=== PATIENT | female | born 1970 | race Caucasian/White ===

== ENCOUNTER 2017-07-17 05:20 | Emergency (ER) | payer OTHER ==
[~2017-07-17] VITALS: Ht 165.1 cm; Wt 69.4 kg
[2017-07-17 05:22] VITALS: BP 110/84
[2017-07-17] MEDS ORDERED: ERGO500028 PO (05:31)
[2017-07-17] MEDS ORDERED: ACET-1083 PO (05:31)
[2017-07-17] MEDS ORDERED: ATA25 PO (05:31)
[2017-07-17] MEDS ORDERED: METF500T PO (05:31)
[2017-07-17] MEDS ORDERED: AMOX500C25 PO (05:31)
[2017-07-17] MEDS ORDERED: PSEU60TA51 PO (05:31)
[2017-07-17] MEDS ORDERED: ALBU4TAB21 PO (05:31)
--- NOTE | 2017-07-17 05:34 | NUR ---
AMBULATED TO ER BED 4
--- NOTE | 2017-07-17 05:35 | NUR ---
PATIENT IS A 46 Y/O FEMALE WHO PRESENTS TO THE ED C/O HEADACHE. PT STATES, "I WAS RECENTLY DIAGNOSED WITH DIABETES BUT I HAVE HAD THIS HEADACHE AND DIZZINESS SINCE THURSDAY." PT REPORTS 10/10 ACHING HEADACHE PAIN THAT DOES NOT RADIATE. PT DENIES SOB, CP, REPORTS NAUSEA DENIES VOMITING/DIARRHEA. PT AAOX4, RR EVEN/UNLABORED. PT REPOSITIONED FOR COMFORT, BED IN LOWEST POSITION. ER MD DR. ROBERTS NOTIFIED. WILL CONTINUE TO MONITOR.
--- NOTE | 2017-07-17 05:36 | NUR ---
DR. ROBERTS EVALUATING PATIENT AT BEDSIDE.
[2017-07-17] MEDS ORDERED: diphenhydrAMINE 50 MG/ML VIAL IM ONE (05:40)
[2017-07-17] MEDS ORDERED: PROCHLORPERAZINE 10 MG/2 ML VIAL IM ONE (05:40)
[2017-07-17 06:40] VITALS: BP 117/88
--- NOTE | 2017-07-17 06:40 | NUR ---
Patient discharged with v/s stable. Written and verbal after care instructions given and explained. Patient verbalized understanding. Ambulatory with steady gait. All questions addressed prior to discharge. Advised to follow up with PMD.
== END 2017-07-17 06:40 | disposition home or self-care (01) ==
LOC: MED 05:20
DX: R51 Headache (principal); M54.2 Cervicalgia; R09.81 Nasal congestion; E11.9 Type 2 diabetes mellitus without complications; Z79.899 Other long term (current) drug therapy; Z90.710 Acquired absence of both cervix and uterus; Z79.84 Long term (current) use of oral hypoglycemic drugs
CPT/HCPCS: 70450; 82948; 96372; 99284; J0780; J1200

== ENCOUNTER 2018-01-14 04:05 | Emergency (ER) | payer OTHER ==
[~2018-01-14] VITALS: Ht 160 cm; Wt 65.8 kg
[~2018-01-14 04:05] MED LIST: ACET-1083 PO; ALBU4TAB21 PO; AMOX500C25 PO; ATA25 PO; ERGO500028 PO; METF500T PO; PSEU60TA51 PO
[2018-01-14 04:12] VITALS: BP 113/72
[2018-01-14] MEDS: ONDANSETRON 4 MG/2 ML VIAL IVP ONE (05:19)
[2018-01-14] MEDS: NACL 0.9% 1,000 ML IV SCH (05:19)
[2018-01-14] MEDS: KETOROLAC 30 MG/ML VIAL IVP ONE (05:19)
[2018-01-14 05:24] LABS: BASOPHILS % (AUTO) 0.4 % (0.0-2.0); HEMOGLOBIN 14.1 g/dL (12.0-16.0); LYMPHOCYTES # (AUTO) 0.8 K/uL (2.5-16.5); MEAN CORPUSCULAR HEMOGLOBIN 31 pg (27-31); MEAN CORPUSCULAR HGB CONC 33 g/dL (33-37); MONOCYTES # (AUTO) 0.1 K/uL (0.8-1.0); MONOCYTES % (AUTO) 0.9 % (1.7-9.3); NEUTROPHILS # (AUTO) 12.3 K/uL (1.8-7.7); NEUTROPHILS % (AUTO) 92.7 % (42.2-75.2); PLATELET COUNT (AUTO) 195 K/uL (140-450); RED BLOOD CELL COUNT(AUTO) 4.47 MIL/uL (4.20-5.40); RED CELL DISTRIBUTION WIDTH 12.7 % (11.6-13.7); WHITE BLOOD COUNT (AUTO) 13.3 K/uL (4.8-10.8)
[2018-01-14 05:38] LABS: ALBUMIN 3.8 g/dL (3.4-5.0); ANION GAP 14.7 (8-16); CARBON DIOXIDE 23.9 mmol/L (21-32); CREATININE 0.9 mg/dL (0.6-1.3); POTASSIUM 3.6 mmol/L (3.5-5.1); TOTAL BILIRUBIN 0.4 mg/dL (0.0-1.0)
[2018-01-14] MEDS: INSULIN REGULAR, HUMAN 100 UNIT/ML VIAL IV ONE (06:12)
[2018-01-14 07:14] VITALS: BP 113/72
== END 2018-01-14 07:14 | disposition home or self-care (01) ==
LOC: MED 04:05
DX: R10.13 Epigastric pain (principal); R11.2 Nausea with vomiting, unspecified; E11.9 Type 2 diabetes mellitus without complications; F17.210 Nicotine dependence, cigarettes, uncomplicated; Z90.89 Acquired absence of other organs; Z79.899 Other long term (current) drug therapy
CPT/HCPCS: 36415; 80053; 81002; 81025; 83690; 85025; 96361; 96374; 96375; 99284; J1815; J1885; J2405

== ENCOUNTER 2021-01-19 13:59 | Emergency (ER) | payer OTHER ==
[~2021-01-19] VITALS: Ht 165.1 cm; Wt 68.0 kg
[~2021-01-19 13:59] MED LIST changes: +ALBU-150 PO; -ALBU4TAB21 PO; -PSEU60TA51 PO; +PSEU60TA52 PO
[2021-01-19 14:05] VITALS: BP 93/70
--- NOTE | 2021-01-19 14:15 | NUR ---
50 Y/O FEMALE CAME TO THE ED C/O RT SIDED ABDOMINAL PAIN. PT STATES THAT SHE HAS RT SIDED ABDOMINAL SHARP PAIN OF 10/10, AND NONRADIATINGX 1 DAY. PT STATES NAUSEA BUT DENIES VOMITTING. PT STATES THAT BOWEL WAS STILL NORMAL AND REGULAR. NORMOACTIVE BOWEL SOUNDS IN 4 QUADRANTS. PMH: DM, HLD, HYSTERECTOMY, APPENDIX REMOVAL NKA
[2021-01-19 15:10] LABS: APPEARANCE,URINE CLOUDY (CLEAR); BASOPHILS % (AUTO) 0.4 % (0.0-2.0); BILIRUBIN,URINE NEGATIVE (NEGATIVE); BLOOD, URINE 1+ (NEGATIVE); COLOR,URINE AMBER (YELLOW); EOSINOPHILS % (AUTO) 0.3 % (0.0-4.0); HEMATOCRIT 41.2 % (36-48); LEUKOCYTE ESTERASE ,URINE 1+ (NEGATIVE); LYMPHOCYTES # (AUTO) 0.8 K/uL (2.5-16.5); LYMPHOCYTES % (AUTO) 7.9 % (20.5-51.1); MEAN CORPUSCULAR HEMOGLOBIN 32 pg (27-31); MEAN CORPUSCULAR HGB CONC 34 g/dL (33-37); MEAN CORPUSCULAR VOLUME 93.2 fL (80-94); MONOCYTES # (AUTO) 0.2 K/uL (0.8-1.0); NEUTROPHILS % (AUTO) 89.4 % (42.2-75.2); NITRITE, URINE POSITIVE (NEGATIVE); PLATELET COUNT (AUTO) 138 K/uL (140-450); RED BLOOD CELL COUNT(AUTO) 4.41 MIL/uL (4.20-5.40); RED CELL DISTRIBUTION WIDTH 13.1 % (11.6-13.7); UGLUCOSE 1+ (NEGATIVE); WHITE BLOOD COUNT (AUTO) 10.1 K/uL (4.8-10.8)
[2021-01-19] MEDS: KETOROLAC 15 MG/ML VIAL IVP ONE (15:14)
[2021-01-19] MEDS: ONDANSETRON 4 MG ODT PO ONE (15:15)
[2021-01-19] MEDS: KETOROLAC 30 MG/ML VIAL IVP ONE (15:16)
[2021-01-19] MEDS: NACL 0.9% 1,000 ML IV SCH (15:16)
[2021-01-19 15:33] LABS: WBC,URINE 60-80 /HPF (0-5)
[2021-01-19 15:40] LABS: ALBUMIN 3.7 g/dL (3.4-5.0); ANION GAP 15.3 (8-16); CARBON DIOXIDE 25.2 mmol/L (21-32); CREATININE 0.7 mg/dL (0.6-1.3); POTASSIUM 3.5 mmol/L (3.5-5.1); TOTAL BILIRUBIN 0.9 mg/dL (0.0-1.0)
--- NOTE | 2021-01-19 15:55 | NUR ---
OBTAINED CONSENT FORM FOR CT ABDOMEN/PELVIS WITH CONTRAST FOR PT. CONSENT FORM SIGNED AND ACKNOWLEDGED BY PT.
--- NOTE | 2021-01-19 15:58 | NUR ---
PT TAKEN TO CT VIA WHEELCHAIR
--- NOTE | 2021-01-19 16:19 | NUR ---
PT IS BACK FROM CT VIA WC
[2021-01-19] MEDS ORDERED: cefTRIAXone 1,000 MG VIAL ONE (16:42)
[2021-01-19] MEDS ORDERED: ROSU20TA1 PO (16:59)
[2021-01-19] MEDS ORDERED: INSU100I7 SQ (16:59)
[2021-01-19] MEDS ORDERED: CEPH500C16 PO (17:50)
[2021-01-19] MEDS ORDERED: ONDA-24 SL (17:50)
[2021-01-19] MEDS ORDERED: ACET-8386 PO ×2 (17:50→17:53)
[2021-01-19] MEDS ORDERED: IBUP-2213 PO (17:50)
[2021-01-19 18:05] VITALS: BP 93/70
--- NOTE | 2021-01-19 18:07 | NUR ---
Patient discharged with v/s stable. Written and verbal after care instructions given and explained. Patient alert, oriented and verbalized understanding of instructions. Ambulatory with steady gait. All questions addressed prior to discharge. ID band removed. Patient advised to follow up with PMD. Rx of KEFLEX, IBUPROFEN AND ZOFRAN given. Patient educated on indication of medication including possible reaction and side effects. Opportunity to ask questions provided and answered.
== END 2021-01-19 18:07 | disposition home or self-care (01) ==
LOC: MED 13:59
DX: N83.209 Unspecified ovarian cyst, unspecified side (principal); N12 Tubulo-interstitial nephritis, not specified as acute or chronic; E11.9 Type 2 diabetes mellitus without complications; E78.5 Hyperlipidemia, unspecified; Z79.899 Other long term (current) drug therapy
CPT/HCPCS: 36415; 74177; 76856; 80053; 81001; 83690; 85025; 87086; 93976; 96361; 96365; 96375; 96376; 99285; J0696; J1885; J7030; Q0162; Q9967

== ENCOUNTER 2022-02-11 07:39 | Emergency (ER) | payer OTHER ==
[~2022-02-11] VITALS: Ht 162.6 cm; Wt 65.8 kg
[~2022-02-11 07:39] MED LIST changes: -ACET-1083 PO; +ACET-8386 PO; -ALBU-150 PO; -AMOX500C25 PO; -ATA25 PO; +CEPH500C16 PO; -ERGO500028 PO; +IBUP-2213 PO; +INSU100I7 SQ; -METF500T PO; +ONDA-188 SL; -PSEU60TA52 PO; +ROSU20TA1 PO
[2022-02-11 07:53] VITALS: BP 139/93
--- NOTE | 2022-02-11 07:58 | NUR ---
PATIENT AMBULATED TO BED 4.
--- NOTE | 2022-02-11 08:00 | NUR ---
51 YO F C/O GEN WEAKNESS AND IRVIN ACCOMPANIED BY NAUSEA ONSET TODAY. HX DM, STATES ELEVATED BS @ HOME. POC BS ELEVATED, ERMD NOTIFIED, DENIES ANY CP OR SOB, AAOX3, AMBULATORY, BLOOD DRAWN, ON MONITOR, IN RA, NAD, NO SKIN ISSUES. IV ESTABLISHED ON R AC 20G, BLOOD AND URINE COLLECTED AND SENT TO LAB.
[2022-02-11] MEDS ORDERED: ONDANSETRON 4 MG/2 ML VIAL IVP ONE (08:40)
[2022-02-11] MEDS ORDERED: NACL 0.9% 2,000 ML IV ONE (08:40)
[2022-02-11 09:10] LABS: BASOPHILS % (AUTO) 0.7 % (0.0-2.0); EOSINOPHILS # (AUTO) 0.2 K/uL (0-0.4); EOSINOPHILS % (AUTO) 3.5 % (0.0-4.0); HEMATOCRIT 45.1 % (36-48); HEMOGLOBIN 15.2 g/dL (12.0-16.0); LYMPHOCYTES # (AUTO) 2.6 K/uL (2.5-16.5); MEAN CORPUSCULAR HEMOGLOBIN 30 pg (27-31); MEAN CORPUSCULAR HGB CONC 34 g/dL (33-37); MEAN CORPUSCULAR VOLUME 90.1 fL (80-94); MONOCYTES # (AUTO) 0.3 K/uL (0.8-1.0); MONOCYTES % (AUTO) 4.9 % (1.7-9.3); NEUTROPHILS # (AUTO) 3.4 K/uL (1.8-7.7); NEUTROPHILS % (AUTO) 51.9 % (42.2-75.2); PLATELET COUNT (AUTO) 177 K/uL (140-450); RED BLOOD CELL COUNT(AUTO) 5.01 MIL/uL (4.20-5.40); WHITE BLOOD COUNT (AUTO) 6.6 K/uL (4.8-10.8)
[2022-02-11 09:37] LABS: APPEARANCE,URINE CLEAR (CLEAR); BILIRUBIN,URINE NEGATIVE (NEGATIVE); BLOOD, URINE NEGATIVE (NEGATIVE); COLOR,URINE YELLOW (YELLOW); LEUKOCYTE ESTERASE ,URINE TRACE (NEGATIVE); NITRITE, URINE NEGATIVE (NEGATIVE); UGLUCOSE 3+ (NEGATIVE)
--- NOTE | 2022-02-11 09:44 | NUR ---
VBG COLLECTED AND GIVEN TO RT.
--- NOTE | 2022-02-11 09:57 | NUR ---
SELENAG RAN AND REPORTED TO DR. HOLLIDAY.
[2022-02-11 10:12] LABS: ALBUMIN 3.9 g/dL (3.4-5.0); ANION GAP 14.5 (8-16); CARBON DIOXIDE 24.3 mmol/L (21-32); CREATININE 0.6 mg/dL (0.6-1.3); POTASSIUM 3.8 mmol/L (3.5-5.1); TOTAL BILIRUBIN 0.3 mg/dL (0.0-1.0)
--- NOTE | 2022-02-11 10:26 | NUR ---
POC BS 270. ERMD NOTIFIED
[2022-02-11 10:47] LABS: RBC,URINE 0-5 /HPF (0-5); WBC,URINE 0-5 /HPF (0-5)
[2022-02-11 11:38] VITALS: BP 126/68
--- NOTE | 2022-02-11 11:38 | NUR ---
PATIENT CALM AND RESTING. STATES NO LONGER HAVING IRVIN. STATES FEELING BETTER.
--- NOTE | 2022-02-11 11:50 | NUR ---
Patient discharged with v/s stable. Written and verbal after care instructions given and explained. Patient alert, oriented and verbalized understanding of instructions. Ambulatory with steady gait. All questions addressed prior to discharge. ID band removed. Patient advised to follow up with PMD. Rx NOT given. Patient educated on indication of medication including possible reaction and side effects. Opportunity to ask questions provided and answered.
== END 2022-02-11 11:50 | disposition home or self-care (01) ==
LOC: MED 07:39
DX: E11.9 Type 2 diabetes mellitus without complications (principal); N76.0 Acute vaginitis; E78.5 Hyperlipidemia, unspecified; Z90.710 Acquired absence of both cervix and uterus; Z79.891 Long term (current) use of opiate analgesic; Z79.1 Long term (current) use of non-steroidal anti-inflammatories (NSAID); Z79.899 Other long term (current) drug therapy; Z79.2 Long term (current) use of antibiotics
CPT/HCPCS: 36415; 80053; 81001; 81025; 82803; 82948; 83690; 85025; 87086; 93005; 96361; 96374; 99284; J2405

== ENCOUNTER 2022-12-18 17:30 | Emergency (ER) | payer OTHER ==
[~2022-12-18] VITALS: Ht 162.6 cm; Wt 64.9 kg
[~2022-12-18 17:30] MED LIST changes: -ACET-8386 PO; +ACET-8905 PO
[2022-12-18 17:40] VITALS: BP 136/93
[2022-12-18] MEDS ORDERED: MECLIZINE 25 MG TAB PO ONE (18:40)
[2022-12-18] MEDS ORDERED: KETOROLAC 30 MG/ML VIAL IM ONE (18:40)
[2022-12-18 18:44] LABS: BASOPHILS % (AUTO) 0.6 % (0.0-2.0); EOSINOPHILS # (AUTO) 0.1 K/uL (0-0.4); EOSINOPHILS % (AUTO) 1.7 % (0.0-4.0); HEMATOCRIT 43.2 % (36-48); HEMOGLOBIN 14.7 g/dL (12.0-16.0); LYMPHOCYTES # (AUTO) 2.1 K/uL (2.5-16.5); LYMPHOCYTES % (AUTO) 27.2 % (20.5-51.1); MEAN CORPUSCULAR HEMOGLOBIN 31 pg (27-31); MEAN CORPUSCULAR HGB CONC 34 g/dL (33-37); MEAN CORPUSCULAR VOLUME 91.2 fL (80-94); MONOCYTES # (AUTO) 0.3 K/uL (0.8-1.0); MONOCYTES % (AUTO) 3.5 % (1.7-9.3); NEUTROPHILS # (AUTO) 5.2 K/uL (1.8-7.7); PLATELET COUNT (AUTO) 183 K/uL (140-450); RED BLOOD CELL COUNT(AUTO) 4.74 MIL/uL (4.20-5.40); RED CELL DISTRIBUTION WIDTH 12.9 % (11.6-13.7); WHITE BLOOD COUNT (AUTO) 7.8 K/uL (4.8-10.8)
[2022-12-18 19:01] LABS: ANION GAP 11.5 (8-16); CARBON DIOXIDE 26.8 mmol/L (21-32); POTASSIUM 4.3 mmol/L (3.5-5.1); TOTAL BILIRUBIN 0.4 mg/dL (0.0-1.0)
[2022-12-18 19:05] LABS: LIPASE 180 U/L (73-393)
[2022-12-18] MEDS ORDERED: ACET-10509 PO (20:13)
[2022-12-18] MEDS ORDERED: ASPI-1198 PO (20:13)
--- NOTE | 2022-12-18 21:09 | NUR ---
Dr. Davidson explained results and treatment plans.
[2022-12-18] MEDS ORDERED: ACETAMINOPHEN EXTRA STRENGTH 500 MG TAB PO ONE (21:15)
[2022-12-18 22:01] VITALS: BP 136/93
--- NOTE | 2022-12-18 22:01 | NUR ---
Patient discharged with v/s stable. Written and verbal after care instructions given and explained. Patient alert, oriented and verbalized understanding of instructions. Ambulatory with steady gait. All questions addressed prior to discharge. ID band removed. Patient advised to follow up with PMD. Rx of EXCEDRIN AND TYLENOL given. Patient educated on indication of medication including possible reaction and side effects. Opportunity to ask questions provided and answered.
== END 2022-12-18 22:01 | disposition home or self-care (01) ==
LOC: MED 17:30
DX: R51.9 Headache, unspecified (principal); M79.602 Pain in left arm; R00.2 Palpitations; E11.9 Type 2 diabetes mellitus without complications; Z79.4 Long term (current) use of insulin; Z79.899 Other long term (current) drug therapy
CPT/HCPCS: 36415; 71045; 80053; 83690; 83880; 84484; 85025; 93005; 96372; 99285; J1885; J8597

== ENCOUNTER 2023-07-15 02:50 | Emergency (ER) | payer OTHER ==
[~2023-07-15] VITALS: Ht 165.1 cm; Wt 62.1 kg
[~2023-07-15 02:50] MED LIST changes: +ACET-10509 PO; +ASPI-1198 PO
[2023-07-15 03:25] VITALS: BP 120/89; PULSE 84; RESP 17; TEMP 98.1; O2SAT 97
[2023-07-15 05:05] LABS: APPEARANCE,URINE CLEAR (CLEAR); BILIRUBIN,URINE NEGATIVE (NEGATIVE); BLOOD, URINE NEGATIVE (NEGATIVE); COLOR,URINE YELLOW (YELLOW); LEUKOCYTE ESTERASE ,URINE NEGATIVE (NEGATIVE); NITRITE, URINE NEGATIVE (NEGATIVE); PROTEIN,URINE NEGATIVE (NEGATIVE); UGLUCOSE 3+ (NEGATIVE); UROBILINOGEN,URINE 0.2 EU/dL (0.2 - 1)
[2023-07-15] MEDS ORDERED: KETOROLAC 30 MG/ML VIAL IM ONE (05:15)
[2023-07-15] MEDS ORDERED: METR-435 PO (05:43)
[2023-07-15] MEDS ORDERED: NAPR-54 PO (05:43)
[2023-07-15] MEDS ORDERED: LOTC TP (05:51)
== END 2023-07-15 05:50 | disposition home or self-care (01) ==
LOC: MED 02:50
DX: N76.0 Acute vaginitis (principal); B96.89 Other specified bacterial agents as the cause of diseases classified elsewhere; R10.2 Pelvic and perineal pain; E11.9 Type 2 diabetes mellitus without complications; F17.210 Nicotine dependence, cigarettes, uncomplicated; Z90.49 Acquired absence of other specified parts of digestive tract; Z79.899 Other long term (current) drug therapy; Z79.2 Long term (current) use of antibiotics; Z79.1 Long term (current) use of non-steroidal anti-inflammatories (NSAID)
CPT/HCPCS: 81003; 87210; 96372; 99284; J1885

== ENCOUNTER 2023-11-27 12:16 | Emergency (ER) | payer OTHER ==
[~2023-11-27] VITALS: Ht 165.1 cm; Wt 62.1 kg
[~2023-11-27 12:16] MED LIST changes: +LOTC TP; +METR-435 PO; +NAPR-54 PO
[2023-11-27 12:32] VITALS: BP 102/73; PULSE 83; RESP 17; TEMP 98.1; O2SAT 97
[2023-11-27] MEDS ORDERED: AMOX1TAB8 PO (12:53)
[2023-11-27] MEDS ORDERED: PROM118S5 PO (12:53)
[2023-11-27] MEDS ORDERED: GLYC15SO9 OP (12:53)
[2023-11-27] MEDS ORDERED: FLONAS NS (12:53)
== END 2023-11-27 13:06 | disposition home or self-care (01) ==
LOC: MED 12:16
DX: J01.90 Acute sinusitis, unspecified (principal); E11.9 Type 2 diabetes mellitus without complications; Z79.4 Long term (current) use of insulin; Z79.899 Other long term (current) drug therapy
CPT/HCPCS: 99283

== ENCOUNTER 2023-12-01 12:59 | Emergency (ER) | payer OTHER ==
[~2023-12-01] VITALS: Ht 165.1 cm; Wt 62.1 kg
[~2023-12-01 12:59] MED LIST changes: +AMOX1TAB8 PO; +FLONAS NS; +GLYC15SO9 OP; +PROM118S5 PO
[2023-12-01 13:11] VITALS: BP 103/64; PULSE 86; RESP 18; TEMP 98; O2SAT 97
[2023-12-01] MEDS ORDERED: LORA1T1237 PO (15:50)
[2023-12-01] MEDS ORDERED: BENZ150C2 PO (15:50)
[2023-12-01] MEDS ORDERED: ALBU0.0912 IH (15:50)
== END 2023-12-01 16:22 | disposition home or self-care (01) ==
LOC: MED 12:59
DX: J20.9 Acute bronchitis, unspecified (principal); Z79.899 Other long term (current) drug therapy
CPT/HCPCS: 71045; 99283

== ENCOUNTER 2023-12-23 14:53 | Emergency (ER) | payer OTHER ==
[~2023-12-23] VITALS: Ht 165.1 cm; Wt 61.2 kg
[~2023-12-23 14:53] MED LIST changes: +ALBU0.0912 IH; +BENZ150C7 PO; +LORA1T1237 PO; +NAPR-337 PO; -NAPR-54 PO
[2023-12-23 15:07] VITALS: BP 110/77; PULSE 95; RESP 20; TEMP 98.1; O2SAT 97
[2023-12-23] MEDS ORDERED: KETOROLAC 30 MG/ML VIAL IM ONE (15:40)
[2023-12-23] MEDS ORDERED: METH1ADH21 TP (15:40)
[2023-12-23] MEDS ORDERED: NAPR-1704 PO (15:40)
[2023-12-23] MEDS ORDERED: DICL100G32 TP (15:40)
[2023-12-23 15:49] VITALS: BP 138/60; PULSE 72; RESP 18; TEMP 98.3; O2SAT 99
== END 2023-12-23 15:48 | disposition home or self-care (01) ==
LOC: MED 14:53
DX: M19.042 Primary osteoarthritis, left hand (principal); M19.041 Primary osteoarthritis, right hand; M19.032 Primary osteoarthritis, left wrist; M19.031 Primary osteoarthritis, right wrist; M19.072 Primary osteoarthritis, left ankle and foot; M19.071 Primary osteoarthritis, right ankle and foot; M54.50 Low back pain, unspecified; E11.9 Type 2 diabetes mellitus without complications; E78.5 Hyperlipidemia, unspecified; Z90.49 Acquired absence of other specified parts of digestive tract; Z90.710 Acquired absence of both cervix and uterus; Z79.899 Other long term (current) drug therapy; Z91.018 Allergy to other foods
CPT/HCPCS: 82948; 99282

== ENCOUNTER 2024-05-09 06:04 | Emergency (ER) | payer OTHER ==
[~2024-05-09] VITALS: Ht 162.6 cm; Wt 59.9 kg
[~2024-05-09 06:04] MED LIST changes: -ACET-10509 PO; +ACET500T99 PO; +DICL100G32 TP; +METH1ADH21 TP; +NAPR-1704 PO
[2024-05-09 06:14] VITALS: BP 129/67; PULSE 74; RESP 18; TEMP 97.6; O2SAT 98
[2024-05-09 06:22] VITALS: O2SAT 98
[2024-05-09] MEDS: ALUMINUM HYD/MAG/SIMETHICONE 30 ML UDC PO ONE (06:42)
[2024-05-09 07:12] LABS: ANION GAP 13.7 (8-16); CALCIUM 9.1 mg/dL (8.5-10.1); CARBON DIOXIDE 27.9 mmol/L (21-32); CREATININE 0.6 mg/dL (0.6-1.3); POTASSIUM 3.6 mmol/L (3.5-5.1)
[2024-05-09 07:17] LABS: ALANINE AMINOTRANSFERASE 22 U/L (12-78); ALBUMIN 3.8 g/dL (3.4-5.0); ALKALINE PHOSPHATASE 58 U/L (50-136); ASPARTATE AMINOTRANSFERASE 9 U/L (15-37); BILIRUBIN,DIRECT 0.1 mg/dL (0.0-0.3); LIPASE 55 U/L (16-77); TOTAL BILIRUBIN 0.7 mg/dL (0.0-1.0); TOTAL PROTEIN, SERUM 7.2 g/dL (6.4-8.2)
[2024-05-09 07:24] LABS: APPEARANCE,URINE CLEAR (CLEAR); BILIRUBIN,URINE NEGATIVE (NEGATIVE); BLOOD, URINE NEGATIVE (NEGATIVE); COLOR,URINE YELLOW (YELLOW); LEUKOCYTE ESTERASE ,URINE NEGATIVE (NEGATIVE); NITRITE, URINE NEGATIVE (NEGATIVE); PROTEIN,URINE NEGATIVE (NEGATIVE); UGLUCOSE 2+ (NEGATIVE); UROBILINOGEN,URINE 0.2 EU/dL (0.2 - 1)
[2024-05-09 07:25] LABS: BASOPHILS # (AUTO) 0.1 K/uL (0.00-0.22); EOSINOPHILS # (AUTO) 0.4 K/uL (0-0.4); EOSINOPHILS % (AUTO) 5.3 % (0.0-4.0); HEMATOCRIT 41.5 % (36-48); HEMOGLOBIN 14.4 g/dL (12.0-16.0); LYMPHOCYTES # (AUTO) 2.7 K/uL (2.5-16.5); LYMPHOCYTES % (AUTO) 35.1 % (20.5-51.1); MEAN CORPUSCULAR HEMOGLOBIN 31 pg (27-31); MEAN CORPUSCULAR HGB CONC 35 g/dL (33-37); MEAN CORPUSCULAR VOLUME 90.4 fL (80-94); MONOCYTES # (AUTO) 0.4 K/uL (0.8-1.0); MONOCYTES % (AUTO) 5.2 % (1.7-9.3); NEUTROPHILS # (AUTO) 4.1 K/uL (1.8-7.7); NEUTROPHILS % (AUTO) 53.4 % (42.2-75.2); PLATELET COUNT (AUTO) 175 K/uL (140-450); RED BLOOD CELL COUNT(AUTO) 4.59 MIL/uL (4.20-5.40); RED CELL DISTRIBUTION WIDTH 12.9 % (11.6-13.7); WHITE BLOOD COUNT (AUTO) 7.8 K/uL (4.8-10.8)
[2024-05-09] MEDS ORDERED: FAMO-90 PO (07:39)
[2024-05-09] MEDS ORDERED: CYCL-711 PO (07:39)
[2024-05-09] MEDS ORDERED: ACET500T99 PO (07:39)
== END 2024-05-09 07:48 | disposition home or self-care (01) ==
LOC: MED 06:04
DX: R10.13 Epigastric pain (principal); R11.0 Nausea; R19.7 Diarrhea, unspecified; J45.909 Unspecified asthma, uncomplicated; E11.9 Type 2 diabetes mellitus without complications; E78.00 Pure hypercholesterolemia, unspecified; Z90.710 Acquired absence of both cervix and uterus; Z79.899 Other long term (current) drug therapy; Z91.018 Allergy to other foods
CPT/HCPCS: 36415; 71045; 80048; 80076; 81003; 83690; 84484; 85025; 93005; 99285; Q0092